=== PATIENT | female | born 1965 | race Caucasian/White ===

== ENCOUNTER 2021-04-05 17:49 | Emergency (ER) | payer OTHER, SELFPAY ==
[2021-04-05 18:46] VITALS: BP 159/64; PULSE 64; RESP 16; TEMP 36.6; O2SAT 98; BMI 33.6
[2021-04-05 19:02] LABS: Glucose Urine UA NEG (NEG); Leukocyte Esterase Urine 2+ (NEG); Nitrite Urine POS (NEG); PH 5.5 (5.0-8.0); Specific Gravity - Urine <= 1.005 (1.005-1.025); UACC Culture Trigger YES; Urine Blood 2+ (NEG); Urine Ketones NEG (NEG); Urine Protein TRACE MG/DL (NEG-TRACE)
[2021-04-05 19:05] LABS: Appearance Urine HAZY; Color Urine DARK YELLOW
--- NOTE | 2021-04-05 19:07 | ED.FEMALEGU ---
HPI - Female Genitourinary General Chief complaint: Urogenital-Female Stated complaint: uti? Time Seen by Provider: 04/05/21 19:02 Source: patient Mode of arrival: ambulatory Limitations: no limitations History of Present Illness HPI Narrative: 56-year-old female presents for 2 days of dysuria, frequency, urgency. Patient's last UTI was 2 years ago, states it feels the same today. No nausea or vomiting, no back pain, no fevers, no abdominal pain, no vaginal discharge, patient is postmenopausal with no vaginal bleeding, no new sex partners. MD elicited complaint: UTI Pertinent past history: recurrent UTIs Onset (ago): day(s) (2) Severity: moderate Female Urogenital Radiation: Non-Radiating Severity scale (1-10): 5 Consistency: intermittent Vaginal discharge: none Vaginal bleeding: none Urinary symptoms: Dysuria, Urgency and Frequency Exacerbating factors: urination Relieving factors: none Associated symptoms: denies other symptoms Treatment prior to arrival: OTC urinary analgesics Sexual activity: Yes Patient : No Related Data Previous Rx's Medication Instructions Recorded cephalexin 500 mg capsule 500 mg PO QID 5 Days #20 cap 04/05/21 Allergies Allergy/AdvReac Type Severity Reaction Status Date / Time No Known Allergies Allergy Verified 04/05/21 18:48 Review of Systems Constitutional: Constitutional: Denies body ache(s), Denies chills, Denies fever(s), Denies malaise and Denies weakness ENT: Denies dizziness, Denies otalgia, Denies post nasal drip, Reports sinus pain and Denies sore throat Cardiovascular: Cardiovascular: Denies chest pain, Denies syncope, Denies lightheadedness, Denies palpitations and Denies dyspnea Respiratory: Respiratory: Denies chest congestion, Denies cough and Denies dyspnea Gastrointestinal: Gastrointestinal: Denies abdominal pain, Denies hematochezia, Denies constipation, Denies diarrhea and Denies vomiting Genitourinary: Genitourinary: Denies hematuria, Denies urinary frequency, Denies genital pruritis, Denies dyspareunia, Reports dysuria, Denies pelvic pain, Denies flank pain, Reports urinary urgency, Denies vaginal discharge, Denies vaginal odor and Denies vaginal pruritus Musculoskeletal: Musculoskeletal: Reports no additional musculoskeletal complaints and Denies back pain Neurologic: Denies confusion, Denies dizziness, Denies syncope and Denies weakness Psychiatric: Psychiatric: Denies anxiety, Denies confusion and Denies depression Endocrine: Endocrine: Denies palpitations PMFSH Past Medical History Medical History (Updated 04/05/21 @ 19:31 by CAROLE Chavez) GERD (gastroesophageal reflux disease) Hypothyroid Social History Social History Advance Directives: No Advance Directives Information Provided: No Patient : No Physical Exam Vital Signs: Vital Signs: Last Vital Signs Temp 97.8 F 04/05/21 18:46 Pulse 64 04/05/21 18:46 Resp 16 04/05/21 18:46 BP 159/64 H 04/05/21 18:46 Pulse Ox 98 04/05/21 18:46 Body Mass Index 33.6 Const: General: No confusion Nutritional Appearance: well nourished Orientation/consciousness: No confusion Limitations: no limitations Eyes: Pupils: Equal, round and reactive pupils present Neck: Neck: Yes full ROM, Yes no lymphadenopathy and Yes supple Resp: Effort & Inspection: normal respiratory effort and able to speak in complete sentences Auscultation: clear to auscultation bilaterally, no crackles, no rales, no rhonchi and no wheezes Cardio: Rate: regular rate Rhythm: regular rhythm Heart sounds: S1 normal heart sound present and S2 normal heart sound present GI: Inspection: Yes normal to inspection Palpation (GI): Soft to palpation, nontender, no guarding and not rigid Percussion: Yes normal to percussion Auscultation: normal bowel sounds : General: Yes no CVA tenderness Back/Spine/Pelvis: Back: no CVA tenderness Skin: General skin exam: no rashes or lesions noted Neuro: General: No confusion Cranial nerves: Yes Equal, round and reactive pupils present Extrem: General: Yes normal to inspection and Yes full ROM Psych: Appearance: grossly normal Affect: normal affect Attitude: cooperative Thought process: Normal thought process present Course Course Course Narrative: 56-year-old female with 2 days of urinary symptoms has a urine with positive nitrate positive leukocyte esterase and +2 blood. Patient has been afebrile, with no flank pain. On exam, patient is well appearing, vitals are stable. No CVA tenderness, benign abdominal exam, no suprapubic tenderness. Counseled patient on antibiotic choice, that we would call her if urine culture did not match antibiotic, gave return precautions of fever, flank pain, nausea vomiting. Patient verbalized agreement and understanding of the plan MDM - Female Genitourinary Lab Data Labs: Lab Results 04/05/21 Range/Units 18:54 Urine Color DARK YELLOW Urine Appearance HAZY Urine pH 5.5 (5.0-8.0) Ur Specific [place] <= 1.005 (1.005-1.025) Urine Protein TRACE (NEG-TRACE) MG/DL Urine Glucose (UA) NEG (NEG) MG/DL Urine Ketones NEG (NEG) MG/DL Urine Blood 2+ H (NEG) Urine Nitrite POS H (NEG) Ur Leukocyte Esterase 2+ H (NEG) Urine RBC 5-9 H (0) /HPF Urine WBC 15-29 H (0-4) /HPF Ur Squamous Epith Cells TRACE /LPF Urine Bacteria TRACE /LPF Urine Mucus TRACE /LPF Discharge Plan Discharge Clinical Impression: Urinary tract infection Qualifiers: Urinary tract infection type: acute cystitis Hematuria presence: without hematuria Qualified Code(s): N30.00 - Acute cystitis without hematuria Patient Disposition: Home, Self-Care Instructions: Urinary Tract Infection in Women (ED) Additional Instructions: Please fill your prescription for cephalexin. You need to take it every 6 hours for 5 days. I sent it to [facility] on [address] and check a P. Please return to emergency room if you have back pain, fevers, nausea or vomiting, or any other new or concerning symptoms. As we discussed, we will call you if your urine culture and sensitivity does not match the organism that grows out and the antibiotic I prescribed. If you do not hear from us you do not need to worry about it, just finish your antibiotic Please call your primary care provider for follow-up appointment next week Prescriptions: New cephalexin 500 mg capsule 500 mg PO QID 5 Days Qty: 20 RF: 0
[2021-04-05 19:12] LABS: Bacteria Urine TRACE /LPF; Mucus Urine TRACE /LPF; Squamous Epithelial Cell Urine TRACE /LPF
== END 2021-04-05 20:15 | disposition home or self-care (01) ==
PROVIDERS: Emergency Provider Internal Medicine; PCP Physician Assistant
DX: N30.00 Acute cystitis without hematuria (principal); R79.89 Other specified abnormal findings of blood chemistry; Z79.899 Other long term (current) drug therapy
CPT/HCPCS: 81001; 81003; 87086; 87088; 87186; 99284

== ENCOUNTER 2023-04-22 13:43 | Outpatient (AMB) | payer OTHER, SELFPAY ==
--- NOTE | 2023-04-22 14:08 | A.OFFVIS_ITS ---
Intake Intake Visit Reasons: Recurrent UTIs Intake Note: New Patient presents for initial visit recurrent uti Urology Medications: solifenacin Blood Thinner: none PVR: 0ml's Demurrage Man Required: No Accompanied by: Self / Same As Patient Allergies No Known Allergies Allergy (Verified 04/22/23 14:34) Medication List - Last Reconciled 04/22/23 by KATHERINE Osei bupropion HCl mg PO famotidine mg PO levothyroxine mcg PO lisinopril mg PO losartan mg PO solifenacin mg PO HPI HPI Comments History of Present Illness Details Vanessa is a very pleasant 58 year old [facility] female patient of Dr. Delaney. She has a PMH of overactive bladder, rosacea, allergic rhinitis, hyper tension, anxiety, depression, hyperlipidemia, GERD, and hypothyroidism. She presents to the office today as a new patient for recurrent urinary tract infections. In discussion with the patient today she reports to be doing and feeling well. She reports noting over the last year to have had a few urinary tract infections at which time she has been treated with her primary care provider. However, given increased amounts of UTIs referral to Urology was made. We discussed at length potential causes for recurrent urinary tract infections. Patient also discusses trialing oxybutynin in the past however experience dry mouth and is now on 10 mg of VESIcare daily. She reports having been on overactive bladder medications for the last year. She does report improvement in lower urinary tract symptoms on VESIcare 10 mg daily however does continue to experience urinary dribbling after urination. Discussed at length pelvic floor therapy. In office urinalysis results reviewed with the patient today. PVR 0 mL. Discussed obtaining retroperitoneal ultrasound for further assessment evaluation. However, patient reports being unemployed at this time and having high deductibles in insurance and will further assess how much this will be given her circumstances at this time. When asked she denies urinary urgency, urinary frequency, incontinence, nocturia, hematuria, dysuria, foul smelling urine, changes to urinary stream, flank pain, fever, and or chills. [facility] Medical History Overactive bladder Low back pain Rosacea Allergic rhinitis Essential hypertension Anxiety state Mild recurrent major depression Hyperlipidemia GERD (gastroesophageal reflux disease) Hypothyroid Review of Systems Const Reports as per HPI ENT Reports no additional complaints Card Reports as per [facility] Resp Reports no additional complaints GI Reports as per [facility] Reports as per [facility] Neuro Reports no additional complaints Psych Reports as per [facility] Endo Reports as per [facility] Physical Exam Const General: cooperative, healthy appearing, comfortable, no acute distress, well developed, alert and awake Orientation/consciousness: patient oriented x3 Limitations: no limitations HEENT Head: Yes normal to inspection, Yes normocephalic and Yes atraumatic Ears: hearing grossly normal bilaterally Eyes General: appearance normal, both eyes and all related structures Neck Neck: Yes normal visual inspection and Yes trachea midline Chest Chest palpation & inspection: normal inspection of the chest Resp Effort & Inspection: normal respiratory effort and able to speak in complete sentences Cardio Rate: regular rate GI Inspection: Yes normal to inspection General: Yes no CVA tenderness Back/Spine/Pelvis Back: no CVA tenderness Skin General skin exam: no rashes or lesions noted Neuro General: patient oriented x3 Extrem General: Yes normal to inspection Psych Appearance: grossly normal and well kempt Mental Status: mental status grossly normal Speech and movement: Normal speech and movement present and Clear speech present Affect: normal affect Attitude: cooperative Thought process: Normal thought process present Thought content: Normal thought content present Insight: Good insight present (Psych) Judgement: Good judgement present (Psych) Office Procedures Post Void Residual Post Residual Void Post Void Residual (PVR): 0 [id number]-[id number] Void Residual by ultrasound Results AMB Urinalysis, Automated UA Leukoctes 0 Brittni/uL Last Edit by BENJI Loya on 04/22/23 14:31 UA Nitrite Negative Last Edit by BENJI Loya on 04/22/23 14:31 UA Urobilinogen 0.2 mg/dL Last Edit by BENJI Loya on 04/22/23 14:3 1 UA Protein 0 mg/dL Last Edit by BENJI Loya on 04/22/23 14:31 UA pH 6.0 Last Edit by BENJI Loya on 04/22/23 14:31 UA Blood 0 Livan/uL Last Edit by BENJI Loya on 04/22/23 14:31 UA Specific [place] 1.015 Last Edit by BENJI Loya on 04/22/23 14: 31 UA Ketone Negative Last Edit by Rashaad Peterson, RMA on 04/22/23 14:31 UA Bilirubin 0 mg/dL Last Edit by Rashaad Peterson, RMA on 04/22/23 14:31 UA Glucose 0 mg/dL Last Edit by Sergeyhannah Peterson, RMA on 04/22/23 14:31 Results Reviewed Results Reviewed: Laboratory Last Values Urine pH (Auto) 6.0 04/22/23 14:08 Specific [place] (Auto) 1.015 04/22/23 14:08 Urine Protein (Auto) 0 mg/dL 04/22/23 14:08 Glucose (UA)(Auto) 0 mg/dL 04/22/23 14:08 Urine Ketones (Auto) Negative 04/22/23 14:08 Urine Blood (Auto) 0 Livan/uL 04/22/23 14:08 Urine Nitrite (Auto) Negative 04/22/23 14:08 Urine Bilirubin (Auto) 0 mg/dL 04/22/23 14:08 Urine Urobilinogen (Auto) 0.2 mg/dL 04/22/23 14:08 Leukocyte Esterase (Auto) 0 Brittni/uL 04/22/23 14:08 Assessment & Plan Assessment & Plan (1) Recurrent UTI: Code(s): N39.0 - Urinary tract infection, site not specified Plan In office urinalysis results reviewed with the patient today. PVR 0 mL. Discussed at length potential causes for lower urinary tract symptoms as well as recurrent urinary tract infections. Start Estrace cream as discussed and prescribed. Discussed obtaining retroperitoneal ultrasound for further assessment evaluation however patient reports she will need to call [facility] due to high copays and unfortunately is unemployed at this time. Discussed UTI prevention with D mannose supplement, vitamin-C, increasing fluid intake, behavioral therapy with timed voiding, perineal hygiene and postcoital voiding, and management of constipation with stool softeners and increased fiber intake. Continue VESIcare Information provided on vaginal weights and pelvic floor therapy exercises Follow-up in 1-2 months with imaging to be completed prior; or sooner with any issues, concerns, and or questions. Orders: Orders AMB Urinalysis Automated 04/22/23 N39.0 - Urinary tract infection, site not specified AMB Post Void Residual by ultrasound 04/22/23 N39.3 - Stress incontinence (female) (male) US retroperitoneal comp 04/22/23 N39.0 - Urinary tract infection, site not specified Medications: New estradiol 0.01%(0.1mg/gram) pea-sized to urethra 3 times a week 30 days 42.5 grams 2RF N36.2 - Urethral caruncle, N39.0 - Urinary tract infection, site not specified, N95.2 - Postmenopausal atrophic vaginitis Patient Instructions: The patient had an opportunity to ask questions regarding the treatment plan. All questions were answered. Physical exam, labs, and imaging were discussed and reviewed in detail. As well as risks, benefits, and discussion of treatment choices. No major barriers to understanding were identified. The patient expressed understanding and agreement with the above treatment plan. The patient was made aware they should contact our office by phone for worsening of their current condition, the appearance of new symptoms, or with any questi ons or concerns. Compliance is encouraged with any medications and follow up testing that is ordered. It is a privilege to be allowed the opportunity to participate in? your urological care.? Again, if you have any questions or concerns If you have any questions or concerns please do not hesitate to contact me. The office is [phone]. This note is constructed using voice recognition software. While every effort has been made to ensure accuracy chemistry quality control analyst errors may have been included. Yours sincerely, LIBERTAD Osei-ABIMAEL Coding Level of Care Code New Pt Level 4 (23274) Diagnoses Recurrent UTI N39.0 CPT Codes Post Residual Void - PVR CPT Code: 99243-Ylrd Void Residual by ultrasound ([id number])
== END 2023-04-22 15:07 | disposition home or self-care (01) ==
PROVIDERS: PCP Physician Assistant; Visit Provider Nurse Practitioner Family
DX: N39.0 Urinary tract infection, site not specified (principal)
CPT/HCPCS: 99204

== ENCOUNTER → 2023-04-22 13:43 | Outpatient (BNVA) | payer OTHER, SELFPAY | PROVIDERS: PCP Physician Assistant; Visit Provider Nurse Practitioner Family | DX: N39.0 Urinary tract infection, site not specified (principal) | CPT/HCPCS: 51798; 81003 ==